=== PATIENT | male | born 1935 | race Caucasian/White ===

== ENCOUNTER 2019-01-07 21:46 | Emergency (ER) | payer MEDICARE, OTHER ==
[~2019-01-07] VITALS: Ht 172.7 cm; Wt 87.3 kg
[~2019-01-07 21:46] MED LIST: AMLODIPINE BESYL5 MG PO; ASPIRIN 32325 MG/TAB PO; CARBAMAZEPINE200 MG PO; CEFTIN500 MG PO; FAMILY PHARMAC0.4 MG PO; FOLIC ACID; FOLIC ACID 11 MG/TA1 PO; FOLIC ACID1 MG PO; HCTZ 25MG TAB25 MG PO; HCTZ PO; HCTZ12.5TAB PO; IRON PO; KLONOPIN 0.5MG0.5 MG PO; LISINOPRIL20 MG PO; NORVASC 10MG10 MG PO; OMNICEF 300MG300 MG PO; PHENOBARBITAL32.4 MG PO; PRILOSEC 20MG20 MG PO; TEGRETOL 2200 MG/TAB PO; TYLENOL EXTRA500 M1 PO; VITAMIN C500 MG PO; VITAMIN D1000 IU PO; ZITHROMAX 250M250 MG PO; ZOCOR 20MG20 MG PO; phenobarbital PO
[2019-01-07 21:50] VITALS: TEMP 97.9
[2019-01-07] MEDS ORDERED: REQUIP 0.5MG0.5 MG PO (21:54)
[2019-01-07] MEDS ORDERED: HCTZ 25MG TAB25 MG PO (21:54)
[2019-01-07] MEDS ORDERED: ARICEPT10 MG PO (21:54)
[2019-01-07] MEDS ORDERED: NORCO 325 MG-51 TAB PO (22:42)
[2019-01-07 23:22] VITALS: BP 134/79; PULSE 88
== END 2019-01-07 23:34 | disposition home or self-care (01) ==
LOC: COL.ER 21:46
DX: S52.532A Colles' fracture of left radius, initial encounter for closed fracture (principal); E78.5 Hyperlipidemia, unspecified; I10 Essential (primary) hypertension; W01.0XXA Fall on same level from slipping, tripping and stumbling without subsequent striking against object, initial encounter; Y92.009 Unspecified place in unspecified non-institutional (private) residence as the place of occurrence of the external cause
CPT/HCPCS: Q4021

== ENCOUNTER 2019-01-10 08:14 | Observation (INO) | payer MEDICARE, OTHER ==
[~2019-01-10] VITALS: Ht 172.7 cm; Wt 88.2 kg
[~2019-01-10 08:14] MED LIST changes: +ARICEPT10 MG PO; +NORCO 325 MG-51 TAB PO; +REQUIP 0.5MG0.5 MG PO
[2019-01-10 08:31] LABS: BASO % 0.3 % (0.0-2.0); EOS % 0.3 % (0-4.0); GRAN # 6.9 (1.4-6.5); GRAN % 78.1 % (42.2-75.2); HEMOGLOBIN 11.6 g/dl (13.5-18.0); LYMPH # 0.7 (1.2-3.4); LYMPH % 7.7 % (20.0-51.0); MEAN CELL VOLUME 101 fl (80.0-100.0); MEAN CORPUSCULAR HEMOGLOBIN 35 pg (27.0-31.0); MEAN CORPUSCULAR HGB CONC 35 g/dl (33.0-37.0); MEAN PLATELET VOLUME 8.5 fl (7.4-10.4); MONO # 1.2 (0.1-0.6); MONO % 13.3 % (1.7-9.3); PLATELET COUNT 211 K/mm3 (130-400); RED BLOOD COUNT 3.31 M/mm3 (4.20-5.60); REDCELL DISTRIBUTION WIDTH-CV 11.9 % (11.5-14.5)
[2019-01-10 08:33] LABS: HEMATOCRIT 33.5 % (42.0-52.0)
[2019-01-10 08:35] LABS: INR 1.1 (0.8-3.0); PROTHROMBIN TIME 12.1 SECONDS (9.7-12.8)
[2019-01-10 08:41] LABS: ALBUMIN 3.7 gm/dL (3.5-5.0); BILIRUBIN,TOTAL 0.5 mg/dL (0.0-1.0); CALCIUM 8.4 mg/dL (8.4-10.2); CREATININE, serum 0.65 mg/dL (0.66-1.25); POTASSIUM 3.8 mmol/L (3.4-5.0); TOTAL PROTEIN 6.8 gm/dL (6.4-8.2)
[2019-01-10] MEDS ORDERED: TEGRETOL 2200 MG/TA1 PO (12:05)
[2019-01-10 13:00] VITALS: BP 122/65; PULSE 82; TEMP 97.7
[2019-01-10 17:17] VITALS: BP 146/74; PULSE 80; TEMP 98.3
--- NOTE | 2019-01-10 19:11 | NUR ---
Patient sitting up with hob elevated eating supper. Family is at bedside. Patient states pain has improved and is moving fingers more. Swelling is noted. Skin is warm. Abner bandage dressing in place. Arm is propped on pillow. Call light is within reach. No needs identified at this time.
[2019-01-10 19:31] VITALS: BP 151/69; PULSE 81; TEMP 98.7
--- NOTE | 2019-01-10 21:27 | NUR ---
Patient resting in bed watching TV. Rating pain in arm/ribs 5/10. Given NORCO. Pt has sling for left arm. Evening medications administered. IV site free of complications, no redness/edema. Alert and oriented. NO further needs at this time.
[2019-01-11 00:58] VITALS: BP 137/63; PULSE 80; TEMP 98.7
[2019-01-11 04:00] VITALS: BP 141/71; PULSE 74; TEMP 98.4
--- NOTE | 2019-01-11 05:07 | NUR ---
Patient slept for most of the night. Given pain medication at beginning of shift, nothing since then. VSS. NO needs at this time.
--- NOTE | 2019-01-11 06:52 | NUR ---
Report given to REBECA Knott. Patient asleep.
--- NOTE | 2019-01-11 07:40 | NUR ---
Patient resting in bed with head of bed elevated and is looking at menu. Offered assistance with ordering breakfast and he accepted. Denies pain at rest at this time. Call light is within reach.
--- NOTE | 2019-01-11 08:30 | NUR ---
Patient's left hand remains swollen, severity is not as bad as yesterday. States his fingers do not feel as tight as they were yesterday aftenoon and he has better mobility. Skin is warm and intact. Has no difficulty feeling touch. No numbness or tingling are reported when asked.
[2019-01-11 12:59] VITALS: BP 137/63; PULSE 71; TEMP 97.7
--- NOTE | 2019-01-11 14:52 | NUR ---
Patient typically lives alone at home in [place], [place] but also stays with his daughter and her family as needed when he is rehabilitating or weak from medical issues. Patient is mostly independent with daily living activities and uses a cane for mobility assistance, and he also has a walker to us as needed but does not use it consistently. Patient's primary care physician is Dr. Luis Felipe Herbert, his pharmacy is [facility] and he does have advance directives completed. Patient plans to discharge home with his daughter (Madina Elizabeth) upon recovery in the next day or so. 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 surgical services manager will follow as needed.
[2019-01-11 16:26] VITALS: BP 138/74; PULSE 76; TEMP 97.9
--- NOTE | 2019-01-11 18:00 | NUR ---
Patient visiting with family. Supper brought in to patient by family, they report he ate 100% of meal. Patient is in good spirits. Does offer complaints of pain after getting up to restroom. Pain pill administered. No further needs identified. Call light is within reach.
[2019-01-11 19:14] VITALS: BP 130/62; PULSE 79; TEMP 98.2
[2019-01-12 03:53] VITALS: BP 140/73; PULSE 73; TEMP 97.9
--- NOTE | 2019-01-12 07:13 | NUR ---
PT HAD HAD C/O LT RIB PAIN THROUGHOUT NOC. ADMINISTERED PRN PAIN MEDS NEEDED. PT STATED THAT NOT MUCH PAIN WAS IN WRIST FX.
[2019-01-12 07:35] VITALS: BP 163/83; PULSE 72; TEMP 97.6
[2019-01-12] MEDS ORDERED: TYLENOL 325MG325 MG PO (09:35)
--- NOTE | 2019-01-12 10:02 | NUR ---
Pt AAOx3, Left distal arm wrapped, no complaints at this time, call light within reach. Educated to call to prevent fall with higher fall risk d/t recent history of fall.
--- NOTE | 2019-01-12 11:43 | NUR ---
SW met with patient after clinical rounding. Patient would like SW to come back when his daughter gets here to discuss HH vs OP therapy. SW returned when daughter arrived. She would like outpatient PT/OT at the [facility] in [place]. Nurse and reverse unit operator notified. Patient will dc home with his daughter and outpatient therapy.
[2019-01-12 11:49] VITALS: BP 148/75; PULSE 83; TEMP 98.1
--- NOTE | 2019-01-12 14:52 | NUR ---
Initial visit; Patient thanked Alumni Relations Coordinator for looking in on him, visiting and offering comfort and prayer.
[2019-01-12 15:40] VITALS: BP 150/66; PULSE 75; TEMP 97.9
--- NOTE | 2019-01-12 16:10 | NUR ---
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
[2019-01-12] MEDS ORDERED: NORCO 325 MG-51 TAB PO (16:36)
== END 2019-01-12 17:30 | disposition home or self-care (01) ==
LOC: COL.ER 08:14 → MEDICAL 09:58
PROVIDERS: Emergency Medicine; ADMIT Internal Medicine
DX: S22.32XA Fracture of one rib, left side, initial encounter for closed fracture (principal); W18.30XA Fall on same level, unspecified, initial encounter; I10 Essential (primary) hypertension; E78.5 Hyperlipidemia, unspecified; K21.9 Gastro-esophageal reflux disease without esophagitis; F17.290 Nicotine dependence, other tobacco product, uncomplicated
CPT/HCPCS: 99232-AI; A9284; G0378; J1650; J2270; J3010

== ENCOUNTER 2021-01-21 11:45 | Inpatient (IN) | payer MEDICARE, OTHER ==
[~2021-01-21] VITALS: Ht 172.7 cm; Wt 84.2 kg
[~2021-01-21 11:45] MED LIST changes: +TEGRETOL 2200 MG/TA1 PO; +TYLENOL 325MG325 MG PO
[2021-01-21 12:28] LABS: INR 1.1 (0.8-3.0); PROTHROMBIN TIME 12.4 SECONDS (9.7-12.8)
[2021-01-21 12:30] LABS: PARTIAL THROMBOPLASTIN TIME 30.3 SECONDS (26.0-37.0)
[2021-01-21 12:32] LABS: ALANINE AMINOTRANSFERASE 26 U/L (4-49); ALBUMIN 3.7 gm/dL (3.5-5.0); ALKALINE PHOSPHATASE 100 U/L (50-136); ANION GAP 6 mmol/L (7-16); AST,SGOT 46 U/L (15-37); BILIRUBIN,TOTAL 0.5 mg/dL (0.0-1.0); BLOOD UREA NITROGEN 16 mg/dL (9-20); CALCIUM 9.8 mg/dL (8.4-10.2); CARBON DIOXIDE 33 mmol/L (22-30); CHLORIDE 93 mmol/L (98-107); CREATININE, serum 0.61 (0.66-1.25); GLUCOSE 131 mg/dL (74-106); LIPASE 382 U/L (23-300); POTASSIUM 3.8 mmol/L (3.4-5.0); SODIUM 133 mmol/L (137-145)
[2021-01-21 12:40] LABS: BASO # 0.1 (0.0-0.2); BASO % 0.7 % (0.0-2.0); EOS % 0.2 % (0-4.0); GRAN # 7.6 (1.4-6.5); GRAN % 79.2 % (42.2-75.2); HEMOGLOBIN 11.8 g/dl (13.5-18.0); LYMPH # 0.7 (1.2-3.4); LYMPH % 7.3 % (20.0-51.0); MEAN CELL VOLUME 97 fl (80.0-100.0); MEAN CORPUSCULAR HEMOGLOBIN 32 pg (27.0-31.0); MEAN CORPUSCULAR HGB CONC 33 g/dl (33.0-37.0); MEAN PLATELET VOLUME 9.5 fl (7.4-10.4); MONO # 1.1 (0.1-0.6); MONO % 11.9 % (1.7-9.3); PLATELET COUNT 374 K/mm3 (130-400); RED BLOOD COUNT 3.71 M/mm3 (4.20-5.60); REDCELL DISTRIBUTION WIDTH-CV 17.2 % (11.5-14.5)
[2021-01-21 12:43] LABS: HEMATOCRIT 35.9 % (42.0-52.0)
[2021-01-21 12:44] LABS: TROPONIN-I < 0.012 ng/mL (0.000-0.035)
[2021-01-21 15:59] VITALS: BP 178/83; PULSE 84; TEMP 97.7
[2021-01-21] MEDS ORDERED: FLOMAX 0.40.4 MG/CAP PO (16:15)
[2021-01-21] MEDS ORDERED: PHENOBARBITAL 330 MG PO (16:17)
[2021-01-21] MEDS ORDERED: COLACE 100100 MG/CAP PO (16:57)
[2021-01-21] MEDS ORDERED: PRINIVIL10 MG PO (17:00)
[2021-01-21] MEDS ORDERED: PROAIR HFA0.09 MG/AC IH (17:01)
[2021-01-21] MEDS ORDERED: MIRALAX PA17 GM/Dose PO (17:02)
[2021-01-21 17:24] VITALS: BP 117/75; PULSE 96
[2021-01-21 17:38] LABS: TOTAL PROTEIN,PLEURAL FLUID 3.8 gm/dL
[2021-01-21 18:02] LABS: PLEURAL FLUID RBC 1000 /mm3 (0-0); PLEURAL FLUID WBC 834 /mm3
[2021-01-21 18:03] LABS: PLEURAL FLUID COLOR YELLOW
[2021-01-21 18:04] LABS: PLEURAL FLUID APPEARANCE HAZY
[2021-01-21 18:23] VITALS: BP 147/49; PULSE 95
--- NOTE | 2021-01-21 18:34 | NUR ---
Patient admitted to 312 from ER. Patient daughter at bedside and assisted with admission paperwork. Med rec completed & updates called to [facility]. in and bedside left sided thoracentesis completed. Bandaid CDI. Patient reported some pain after with coughing, tyelnol PRN given. Patient has minimal appetite, he drank and ensure shake. Vss on O2. Breathing does appeared labored. Int to Rac. Patient used urinal, did have some incontinent stool. Pericare provided & fresh linens, He was a 2 assist, with walker. weak. Will report off to night nurse
[2021-01-21 19:15] VITALS: BP 141/65; PULSE 94; TEMP 97.5
--- NOTE | 2021-01-21 20:01 | NUR ---
Awake, alert, oriented x 4, clear communication noted, uses call appropriately, assisted with using the urinal, Tom SCDs in use, bed alarm in use, respirations even and unlabored, shob noted with exertion, O2@3L per NC in use, encouraging patient to take his time and conserve energy, fatigue noted, generalized weakness noted.
[2021-01-21 22:20] LABS: COLLECTION METHOD CLEAN CATCH
[2021-01-21 22:26] LABS: PH 6 (5-8); SQUAMOUS EPITHELIAL 0-2 /hpf; URINE APPEARANCE Clear; URINE BACTERIA None Seen /hpf; URINE BILIRUBIN Negative (NEGATIVE); URINE BLOOD Negative (NEGATIVE); URINE COLOR Yellow; URINE GLUCOSE Negative (NEGATIVE); URINE KETONE Negative (NEGATIVE); URINE LEUKOCYTE ESTERASE Negative (NEGATIVE); URINE NITRATE Negative (NEGATIVE); URINE PROTEIN(semi-quant) Negative (NEGATIVE); URINE RBC 0-2 /hpf; URINE UROBILINOGEN Negative (NEGATIVE)
[2021-01-22] VITALS (10 sets, daily range): BP systolic 119–182; BP diastolic 55–84; PULSE 81–97; TEMP 97.4–98.3
[2021-01-22 06:27] LABS: BASO # 0.1 (0.0-0.2); BASO % 0.5 % (0.0-2.0); EOS # 0.1 (0.0-0.7); EOS % 0.5 % (0-4.0); GRAN # 7.9 (1.4-6.5); GRAN % 76.1 % (42.2-75.2); HEMOGLOBIN 11.1 g/dl (13.5-18.0); LYMPH # 0.9 (1.2-3.4); MEAN CELL VOLUME 99 fl (80.0-100.0); MEAN CORPUSCULAR HEMOGLOBIN 31 pg (27.0-31.0); MEAN CORPUSCULAR HGB CONC 31 g/dl (33.0-37.0); MEAN PLATELET VOLUME 9.3 fl (7.4-10.4); MONO # 1.4 (0.1-0.6); MONO % 13.6 % (1.7-9.3); PLATELET COUNT 330 K/mm3 (130-400); REDCELL DISTRIBUTION WIDTH-CV 17.1 % (11.5-14.5)
[2021-01-22 06:29] LABS: HEMATOCRIT 35.5 % (42.0-52.0)
[2021-01-22 06:37] LABS: CALCIUM 9.2 mg/dL (8.4-10.2); CREATININE, serum 0.58 (0.66-1.25); MAGNESIUM 1.9 mg/dL (1.6-2.3); POTASSIUM 3.7 mmol/L (3.4-5.0)
--- NOTE | 2021-01-22 13:16 | NUR ---
Plan is to go to a SNF, Referrals sent to [facility], [facility], [facility]. Sw met with DTR and patient in room. Patient reports that he is residing with his DTR due to decline in care. Patient is wanting to work toward strenghthing to start Chemo. Patient reports that Madina is DPOA, Madina gave copy of DPOA, SW placed the copy in chart with sticker. Dtr reports that she and her father are on board with a short term stay. PCP is Leilani Monterroso is medication provider, Patient is reported to use Cpap and resuce inhaler.. Best contact for Dtr Madina is cell . Uses walker sit to stand for mobility. Fax sent [phone]. Will continue to follow for care support.
--- NOTE | 2021-01-22 19:29 | NUR ---
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 JOSE DONG NOTIFIED, NERUOLOGY CONSOLT ORDERED. CT SCAN PERFORMED, RESULTS NOT BACK YET. PATIENT HAS SHOWN NO OTHER SIGNS OF SEIZURE ACTIVITY. PATIENT DENIES ANY PAIN OR DISCOMFORT AT THIS TIME. FALL PERCAUTIONS IN PLACE. CALL LIGHT WITHIN REACH. BEDSIDE REPORT GIVEN TO REBECA APONTE.
--- NOTE | 2021-01-22 20:15 | NUR ---
Awake, alert, oriented x 4, speech is fluent, resting quietly in bed, updated on plan of care, stefanie able to express worry for his current medical situation, family brought patient's cpap and glasses and things from home, no distress noted, seizure precautions in place, call w/i reach, fall precautions in place.
--- NOTE | 2021-01-22 22:51 | NUR ---
Patient talkative this evening told this nurse about his time served in the and his first known seizure activity during that time, denies pain, encouraging po intake, poor appetite noted, shob noted on exertion w/movement, Neurology MD came to see patient see new orders for MRI and sleep eeg, updated patient on plan of care, seizure precautions continued. call ray w/i reach.
[2021-01-23 04:03] VITALS: BP 148/68; PULSE 87; TEMP 97.9
[2021-01-23 06:02] LABS: MEAN CELL VOLUME 97 fl (80.0-100.0); MEAN CORPUSCULAR HEMOGLOBIN 32 pg (27.0-31.0); MEAN CORPUSCULAR HGB CONC 33 g/dl (33.0-37.0); MEAN PLATELET VOLUME 8.8 fl (7.4-10.4); PLATELET COUNT 294 K/mm3 (130-400); RED BLOOD COUNT 3.45 M/mm3 (4.20-5.60); REDCELL DISTRIBUTION WIDTH-CV 17.2 % (11.5-14.5)
[2021-01-23 06:11] LABS: HEMATOCRIT 33.3 % (42.0-52.0)
[2021-01-23 06:24] LABS: CALCIUM 9.2 mg/dL (8.4-10.2); CREATININE, serum 0.57 (0.66-1.25); POTASSIUM 4.1 mmol/L (3.4-5.0)
[2021-01-23 07:52] VITALS: BP 140/58; PULSE 88; TEMP 98.3
--- NOTE | 2021-01-23 08:50 | NUR ---
Shift assessment complete. Pt lying in bed, denies pain or SOA. Heart RRR. Lungs CTA. A&Ox4. Reports double vision when watching tv. 2+ edema to BLE and tender to touch both legs. On RA with sats 90%. Denies other needs. Continuing to monitor.
[2021-01-23 12:22] VITALS: BP 151/77; PULSE 92; TEMP 98
--- NOTE | 2021-01-23 15:39 | NUR ---
Property Master faxed clinical updates to [facility], [facility], and [facility]. CONSUELO collaborated with JOSE Chopra who advised patient will need rehab before starting any treatments with Dr. Palomino, Oncologist. Patient to have follow up appointment with Dr. Palomino at discharge for evaluation. CONSUELO spoke with Kenn at [facility] who advised they can tentatively accept patient. CONSUELO followed up with both Wilfredo at [facility] and Giselle at [facility], both continue to screen referral. Giselle advised she would be up to the hospital to visit with patient and patient's daughter this afternoon. Giselle states she is waiting for a call back from Dr. Palomino's office as well.
[2021-01-23 16:19] LABS: PHENOBARBITAL <2 ug/mL (15-40)
[2021-01-23 16:34] VITALS: BP 130/73; PULSE 93; TEMP 97.6
[2021-01-23 19:05] VITALS: BP 141/74; PULSE 95; TEMP 99.3
[2021-01-23 23:36] VITALS: BP 152/58; PULSE 89; TEMP 98
[2021-01-24 03:38] VITALS: BP 108/47; PULSE 92; TEMP 99.3
[2021-01-24 06:43] LABS: MEAN CELL VOLUME 96 fl (80.0-100.0); MEAN CORPUSCULAR HEMOGLOBIN 31 pg (27.0-31.0); MEAN CORPUSCULAR HGB CONC 33 g/dl (33.0-37.0); MEAN PLATELET VOLUME 9.4 fl (7.4-10.4); PLATELET COUNT 272 K/mm3 (130-400); REDCELL DISTRIBUTION WIDTH-CV 16.9 % (11.5-14.5)
[2021-01-24 06:45] LABS: HEMATOCRIT 33.7 % (42.0-52.0)
[2021-01-24 06:52] LABS: CALCIUM 9.3 mg/dL (8.4-10.2); CREATININE, serum 0.59 (0.66-1.25); POTASSIUM 4.1 mmol/L (3.4-5.0)
--- NOTE | 2021-01-24 07:15 | NUR ---
appears to be dozing, bedside shift report received from REBECA Morton
--- NOTE | 2021-01-24 08:00 | NUR ---
sitting up in bed ready to eat breakfst
--- NOTE | 2021-01-24 08:40 | NUR ---
had breakfast and tolerated well, full assessment completed, see interventions for further info
[2021-01-24 08:45] VITALS: BP 135/60; PULSE 95; TEMP 98
--- NOTE | 2021-01-24 10:00 | NUR ---
appears to be sleeping, bed with eyes closed, resp quiet and easy
--- NOTE | 2021-01-24 11:15 | NUR ---
dr Cage in to see patient
[2021-01-24 12:14] VITALS: BP 155/67; PULSE 80; TEMP 97.7
--- NOTE | 2021-01-24 12:19 | NUR ---
repositioned up in bed, checked for incontinence and he is dry and denies urge to void,
--- NOTE | 2021-01-24 14:08 | NUR ---
I met with patient Roel and his daughter Madina in his room this afternoon. He had eaten most of his lunch, except about 1/2 of his fries. He is dozing off through the conversation at times but appears to be listening. His daughter reports that they are hoping to go to rehab at [facility] to help him regain his strength before he returns to her house. This is a relatively new cancer diagnosis for pt and he has really not had an opportunity to talk with Dr Palomino about treatment yet. They are hoping that this can be done while he is still at rehab, so that they can start treatment as soon as he is discharged. We talked about community services that could be used to help with his care and recovery including home health, in home care, and if treatment becomes something that they elect to not start, or stop, then hospice services are also available. 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 Support provided.
--- NOTE | 2021-01-24 15:52 | NUR ---
bedside shift report given to REBECA Mathew
--- NOTE | 2021-01-24 16:35 | NUR ---
Electronics Assembler followed up with Giselle at [facility] and Kenn at [facility], then faxed clinical updates. Both facilities can accept. Palliative consult ordered for patient. Per REBECA Pickering patient is knowledgeable about the [facility] but is not interested in hospice at this time. Patient still plans to discharge to SNF. SW met with patient and his daughter, Madina. Their first preference is [facility]. SW updated all three facilities on patient's preferences.
[2021-01-24 16:47] VITALS: BP 124/64; PULSE 87; TEMP 98.3
--- NOTE | 2021-01-24 17:13 | NUR ---
Pt assisted with sitting up to eat and take sched medication, denies pain or needs at this time. Pt's daughter at bedside. Alf light in reach.
--- NOTE | 2021-01-24 18:41 | NUR ---
Report with REBECA Hsieh.
[2021-01-24 19:16] VITALS: BP 131/67; PULSE 93; TEMP 98.4
--- NOTE | 2021-01-24 20:00 | NUR ---
Report received, assumed care for night court magistrate. Assessment complete. VS stable. A&Ox3-drowsy. Denies pain/nausea/shortness of breath. VS stable. O2@2L/NC-O2 saturations 92-96%. INT to right AC flushes without difficulty. Plan of care discussed for this shift to include HS meds/O2/CPAP/fluid restrictions with no free water/calling for questions/concerns. Verbalizes understanding/denies questions/concerns. Call light in reach. Will monitor.
[2021-01-25 00:09] VITALS: BP 135/62; PULSE 94; TEMP 97.6
--- NOTE | 2021-01-25 01:30 | NUR ---
Called with c/o pain to neck-rating pain 4/10-described as constant ache. Tylenol given per dr order. CPAP applied. Call light in reach. Will monitor.
--- NOTE | 2021-01-25 02:30 | NUR ---
Resting eyes closed. No s/s of pain noted. Call light in reach. Will monitor.
[2021-01-25 04:03] VITALS: BP 136/58; PULSE 90; TEMP 97.6
--- NOTE | 2021-01-25 07:05 | NUR ---
Report with REBECA Hsieh. Pt resting in bed with eyes closed, resp even and unlabored. Call light in reach.
[2021-01-25 07:31] LABS: HEMOGLOBIN 11.2 g/dl (13.5-18.0); MEAN CELL VOLUME 98 fl (80.0-100.0); MEAN CORPUSCULAR HEMOGLOBIN 32 pg (27.0-31.0); MEAN CORPUSCULAR HGB CONC 33 g/dl (33.0-37.0); MEAN PLATELET VOLUME 9.8 fl (7.4-10.4); PLATELET COUNT 279 K/mm3 (130-400); RED BLOOD COUNT 3.51 M/mm3 (4.20-5.60); REDCELL DISTRIBUTION WIDTH-CV 17.1 % (11.5-14.5)
[2021-01-25 07:36] LABS: CALCIUM 9.4 mg/dL (8.4-10.2); CREATININE, serum 0.67 (0.66-1.25); MAGNESIUM 1.9 mg/dL (1.6-2.3); POTASSIUM 4.4 mmol/L (3.4-5.0)
[2021-01-25 07:40] LABS: HEMATOCRIT 34.4 % (42.0-52.0)
[2021-01-25 08:21] LABS: BAND 10 % (0-10); EOSINOPHIL 2 % (0-4); LYMPHOCYTE 13 % (20.0-51.0); NEUTROPHILS 75 % (42.0-75.2); PLATELET ESTIMATE NORMAL (NORMAL)
[2021-01-25 08:39] VITALS: BP 124/71; PULSE 89; TEMP 97.5
[2021-01-25] MEDS ORDERED: TEGRETOL 2200 MG/TA1 PO (08:53)
[2021-01-25] MEDS ORDERED: KEPPRA 500MG500 MG PO (08:54)
--- NOTE | 2021-01-25 09:28 | NUR ---
Patient in bed, moaning. States he feels awful; unble to quantify pain, refusing pain medication. Patient states he feels he has to urinat and have BM - when placed on bedpan with urinal, he is unable to void - however diaper was soiled with stool and urine. Patient positioned for comfort.
--- NOTE | 2021-01-25 09:40 | NUR ---
NC removed and O2 turned off with OT in room to prepare for therapy. O2 sats 94% on room air.
[2021-01-25 09:58] VITALS: BP 124/71; PULSE 89; TEMP 97.5
--- NOTE | 2021-01-25 10:10 | NUR ---
Patient cleared for discharge today. CONSUELO faxed clinical updates to Giselle at [facility] and they are able to accept today. Transport time set for 1130. CONSUELO contacted patient's daughter, Madina to provide update and transport time. CONSUELO met with patient and read IM form aloud. Patient verbalized understanding and provided signature. CONSUELO placed original in chart and provided copy to patient. CONSUELO faxed discharge orders to [facility]. No additional needs at this time.
--- NOTE | 2021-01-25 11:24 | NUR ---
PATIENT CLEANED AND DRESSED FOR TRANSFER TO [facility]. REPORT TO REBECA MAHAN AT FACILITY. ALL BELONGINGS PACKED AND VERIFIED WITH DAUGHTER WHO IS PRESENT FOR DC. INFORMATION PACKET SENT TO FACILITY. NO OTHER QUESTIONS AT THIS TIME.
--- NOTE | 2021-01-25 11:40 | NUR ---
[facility] PATIENT TRANSPORT PRESENT; INFORMATION PACKET GIVEN
== END 2021-01-25 11:40 | DRG 186 ==
LOC: COL.ER 11:45 → MEDICAL 14:55
PROVIDERS: Emergency Medicine; Physician Assistant; Psychiatry & Neurology Neurology; ADMIT Internal Medicine
PROC: 0W9B3ZZ Drainage of Left Pleural Cavity, Percutaneous Approach (ICD-10-PCS; principal; 2021-01-21)
DX: J90 Pleural effusion, not elsewhere classified (principal); J96.01 Acute respiratory failure with hypoxia; C85.13 Unspecified B-cell lymphoma, intra-abdominal lymph nodes; E87.1 Hypo-osmolality and hyponatremia; E87.3 Alkalosis; J98.11 Atelectasis; E87.0 Hyperosmolality and hypernatremia; I31.3 Pericardial effusion (noninflammatory); G40.409 Other generalized epilepsy and epileptic syndromes, not intractable, without status epilepticus; H53.2 Diplopia; Z20.822 Contact with and (suspected) exposure to COVID-19; D64.9 Anemia, unspecified; I10 Essential (primary) hypertension; I95.1 Orthostatic hypotension; E78.5 Hyperlipidemia, unspecified; K21.9 Gastro-esophageal reflux disease without esophagitis; G40.909 Epilepsy, unspecified, not intractable, without status epilepticus; F03.90 Unspecified dementia, unspecified severity, without behavioral disturbance, psychotic disturbance, mood disturbance, and anxiety; G47.33 Obstructive sleep apnea (adult) (pediatric); G25.81 Restless legs syndrome; R53.81 Other malaise; Z79.891 Long term (current) use of opiate analgesic; Z87.891 Personal history of nicotine dependence; Z99.81 Dependence on supplemental oxygen
CPT/HCPCS: 99222-AI; 99232-AI; 99239; A9585; J7030; Q9967

== ENCOUNTER 2021-01-27 15:11 | Emergency (ER) | payer MEDICARE, OTHER ==
[~2021-01-27] VITALS: Ht 172.7 cm; Wt 85.0 kg
[~2021-01-27 15:11] MED LIST changes: +COLACE 100100 MG/CAP PO; +FLOMAX 0.40.4 MG/CAP PO; +KEPPRA 500MG500 MG PO; +MIRALAX PA17 GM/Dose PO; +PHENOBARBITAL 330 MG PO; +PRINIVIL10 MG PO; +PROAIR HFA0.09 MG/AC IH
[2021-01-27 15:21] VITALS: TEMP 97.6
[2021-01-27 16:05] LABS: BASO % 0.2 % (0.0-2.0); EOS # 0.1 (0.0-0.7); EOS % 0.5 % (0-4.0); GRAN # 9.9 (1.4-6.5); GRAN % 81.6 % (42.2-75.2); HEMOGLOBIN 11.3 g/dl (13.5-18.0); LYMPH # 0.6 (1.2-3.4); LYMPH % 5.3 % (20.0-51.0); MEAN CELL VOLUME 99 fl (80.0-100.0); MEAN CORPUSCULAR HEMOGLOBIN 32 pg (27.0-31.0); MEAN CORPUSCULAR HGB CONC 32 g/dl (33.0-37.0); MEAN PLATELET VOLUME 9.3 fl (7.4-10.4); MONO # 1.4 (0.1-0.6); MONO % 11.9 % (1.7-9.3); PLATELET COUNT 303 K/mm3 (130-400); RED BLOOD COUNT 3.56 M/mm3 (4.20-5.60)
[2021-01-27 16:06] LABS: HEMATOCRIT 35.1 % (42.0-52.0)
[2021-01-27 16:14] LABS: ALBUMIN 3.4 gm/dL (3.5-5.0); BILIRUBIN,TOTAL 0.1 mg/dL (0.0-1.0); CALCIUM 10.8 mg/dL (8.4-10.2); CREATININE, serum 0.93 (0.66-1.25); POTASSIUM 4.6 mmol/L (3.4-5.0); TOTAL PROTEIN 6.4 gm/dL (6.4-8.2)
[2021-01-27 16:25] LABS: C-REACTIVE PROTEIN 16.2 mg/dL (0.0-0.9)
[2021-01-27 17:25] VITALS: BP 126/70; PULSE 80
== END 2021-01-27 18:09 | disposition home or self-care (01) ==
LOC: COL.ER 15:11
PROVIDERS: Nurse Practitioner Primary Care
DX: J98.11 Atelectasis (principal); J90 Pleural effusion, not elsewhere classified; G40.909 Epilepsy, unspecified, not intractable, without status epilepticus; F03.90 Unspecified dementia, unspecified severity, without behavioral disturbance, psychotic disturbance, mood disturbance, and anxiety; K21.9 Gastro-esophageal reflux disease without esophagitis; D64.9 Anemia, unspecified; I10 Essential (primary) hypertension; E78.5 Hyperlipidemia, unspecified; Z87.891 Personal history of nicotine dependence; Z85.72 Personal history of non-Hodgkin lymphomas
CPT/HCPCS: Q9967